=== PATIENT | male | born 1975 | race Two or more races ===

== ENCOUNTER 2018-03-25 19:55 | Emergency (ER) | payer SELFPAY ==
[~2018-03-25] VITALS: Ht 157.5 cm; Wt 79.2 kg
[~2018-03-25 19:55] MED LIST: METH10OR3 PO
[2018-03-25 21:00] LABS: ALANINE AMINOTRANSFERASE 23 U/L (12-78); ALBUMIN 4.6 g/dL (3.4-5.0); ANION GAP 6 mmol/L (5-15); CALCIUM 8.9 mg/dL (8.5-10.1); CHLORIDE 106 mmol/L (98-107); CREATININE 0.82 mg/dL (0.7-1.3)
[2018-03-25 21:03] LABS: BASOPHILS # (AUTO) 0.06 x10^3/uL (0-0.1); BASOPHILS % (AUTO) 1 % (0-1); EOSINOPHILS # (AUTO) 0.11 x10^3/uL (0-0.4); EOSINOPHILS % (AUTO) 1 % (1-7); LYMPHOCYTES # (AUTO) 2.28 x10^3/uL (1-3.4); LYMPHOCYTES % (AUTO) 21 % (22-44); MD NO; MEAN CORPUSCULAR HEMOGLOBIN 30.2 pg (27.5-34.5); MEAN CORPUSCULAR VOLUME 88.8 fL (81-97); MEAN PLATELET VOLUME 8.8 fL (7.4-10.4); MONOCYTES # (AUTO) 0.64 x10^3/uL (0.2-0.8); MONOCYTES % (AUTO) 6 % (2-9); NEUTROPHILS # (AUTO) 7.66 x10^3/uL (1.8-6.8); NEUTROPHILS % (AUTO) 71 % (42-75); PLATELET COUNT 291 x10^3/uL (130-400); RED BLOOD COUNT 5.37 x10^6/uL (4.38-5.82)
[2018-03-25 21:05] LABS: ALKALINE PHOSPHATASE 110 U/L (45-117); BILIRUBIN,TOTAL 0.3 mg/dL (0.2-1.0); TOTAL PROTEIN 8.2 g/dL (6.4-8.2); TROPONIN I < 0.015 ng/mL (0.000-0.045)
--- NOTE | 2018-03-25 21:19 | NUR ---
pt called to room from lobby, asked emt to place on monitors.
--- NOTE | 2018-03-25 21:25 | NUR ---
ASSUMED CARE OF PATIENT. PATIENT REPORTS AT 1845 HE HAD LEFT SIDED CHEST PAIN THAT LASTED UNTIL 1999. THE PAIN HAS NOW RESOLVED. NO ACUTE DISTRESS NOTED. VS STABLE. FURNACE COMBUSTION ANALYST ON. FRIEND AT BEDSIDE. WILL CONTINUE TO MONITOR.
--- NOTE | 2018-03-25 21:54 | NUR ---
PT RESTING IN ROOM. MANAGER DELI ON NO ACUTE DISTRESS NOTED. WILL CONTINUE TO MOINTOR.
--- NOTE | 2018-03-25 22:17 | NUR ---
PT AMBULATED TO BATHROOM. UA CUP GIVEN
[2018-03-25 22:37] LABS: CULTURE INDICATED? YES; MICROSCOPIC NOT IND
--- NOTE | 2018-03-25 23:02 | NUR ---
DR ALANIS IN ROOM
[2018-03-25 23:29] VITALS: BP 119/75
--- NOTE | 2018-03-25 23:29 | NUR ---
PT SIGNED AMA
== END 2018-03-25 23:32 | disposition other institution (70) ==
LOC: ED 23:05
DX: R07.89 Other chest pain (principal); F17.210 Nicotine dependence, cigarettes, uncomplicated
CPT/HCPCS: 36415; 71046; 80053; 81003; 84484; 85025; 93005; 99284

== ENCOUNTER 2018-03-26 09:41 | Emergency (ER) | payer SELFPAY ==
[~2018-03-26] VITALS: Ht 157.5 cm; Wt 79.5 kg
--- NOTE | 2018-03-26 10:17 | NUR ---
First contact with pt. MINI. Pt states, "I was here yesterday because I was having shortness of breath and tightness of chest, and anxiety. Dr. Rene said I should be admitted and stay over night for some more test but I refused. I started having some shortness of breath earlier this morning."
--- NOTE | 2018-03-26 10:21 | NUR ---
Pt states, "This morning around 8 I started having an episode like last night again." Pt connected to all monitors. All safety measures in place. Pt is AOx4, ambulates with steady gait and balance from triage to room, and skin is pink, warm, and dry.
[2018-03-26 11:58] VITALS: BP 112/86
== END 2018-03-26 12:00 | disposition home or self-care (01) ==
LOC: ED 11:10
DX: F41.1 Generalized anxiety disorder (principal); R06.09 Other forms of dyspnea; R06.4 Hyperventilation
CPT/HCPCS: 93005; 99283

== ENCOUNTER 2019-09-03 14:22 | Emergency (ER) | payer SELFPAY ==
[~2019-09-03] VITALS: Ht 157.5 cm; Wt 79.7 kg
[~2019-09-03 14:22] MED LIST changes: +METH10OR12 PO; -METH10OR3 PO
--- NOTE | 2019-09-03 16:21 | NUR ---
GETTER OPERATOR: PT AMBULATORY TO ROOM FROM LOBBY
[2019-09-03 17:02] LABS: BASOPHILS # (AUTO) 0.05 x10^3/uL (0-0.1); BASOPHILS % (AUTO) 1 % (0-1); EOSINOPHILS # (AUTO) 0.01 x10^3/uL (0-0.4); EOSINOPHILS % (AUTO) 0 % (1-7); LYMPHOCYTES % (AUTO) 11 % (22-44); MD NO; MEAN CORPUSCULAR HEMOGLOBIN 28.6 pg (27.5-34.5); MEAN CORPUSCULAR HGB CONC 33.4 g/dL (33.2-36.2); MEAN CORPUSCULAR VOLUME 85.6 fL (81-97); MEAN PLATELET VOLUME 8.9 fL (7.4-10.4); MONOCYTES # (AUTO) 0.69 x10^3/uL (0.2-0.8); MONOCYTES % (AUTO) 7 % (2-9); NEUTROPHILS # (AUTO) 8.79 x10^3/uL (1.8-6.8); NEUTROPHILS % (AUTO) 82 % (42-75); PLATELET COUNT 283 x10^3/uL (130-400); RED BLOOD COUNT 5.84 x10^6/uL (4.38-5.82); RED CELL DISTRIBUTION WIDTH 15.2 % (9.4-14.8)
--- NOTE | 2019-09-03 17:02 | NUR ---
Pt [facility] No needs expressed at this time.
[2019-09-03] MEDS ORDERED: ONDANSETRON 2MG/ML, 2ML ONE ×3 (17:04→20:21)
[2019-09-03 17:08] LABS: ALANINE AMINOTRANSFERASE 38 U/L (12-78); ALBUMIN 4.2 g/dL (3.4-5.0); ANION GAP 7 mmol/L (5-15); CHLORIDE 106 mmol/L (98-107); CREATININE 0.83 mg/dL (0.7-1.3)
[2019-09-03 17:13] LABS: ALKALINE PHOSPHATASE 121 U/L (45-117); BILIRUBIN,TOTAL 0.6 mg/dL (0.2-1.0); TOTAL PROTEIN 8.5 g/dL (6.4-8.2); TROPONIN I < 0.015 ng/mL (0.000-0.045)
--- NOTE | 2019-09-03 17:25 | NUR ---
Pt back to room from imaging. PIV established, PIV fluids and medication provided per EMAR. No other needs expressed. NADN.
[2019-09-03] MEDS ORDERED: ONDANSETRON 2MG/ML, 2ML IVPush ONE ×3 (17:30→18:30)
[2019-09-03] MEDS ORDERED: SODIUM CHLORIDE FLUSH 10ML SYR IVF ONE (17:30)
[2019-09-03] MEDS ORDERED: SODIUM CHLORIDE 0.9% 1,000ML IVBOLUS ONE (17:30)
--- NOTE | 2019-09-03 17:50 | NUR ---
TASK RN: PT SITTING UP ON GURNEL, ACTIVELY VOMITING. "THE MEDICINE SHE GAVE ME FOR VOMITING ISNT HELPING" TO BE DISCUSSED WITH MD. PT SR PER MONITOR. PT ASKING FOR BLANKET. NO OTHER NEEDS EXPRESSED AT THIS TIME.
--- NOTE | 2019-09-03 18:13 | NUR ---
Provided medications per EMAR. Pt appreciative. NADN. No other needs expressed at this time.
--- NOTE | 2019-09-03 19:02 | NUR ---
RECEIVED BEDSIDE REPORT FROM DENYS ESTES. PT IS LAYING IN BED, VSS, OCCASIONAL MOANING, STATES NAUSEA IS SOMEWHAT RESOLVED. GIRLFRIEND AT BEDSIDE.
--- NOTE | 2019-09-03 19:13 | NUR ---
Provided bedside report to DENYS Garza. All questions answered. No needs expressed at this time.
[2019-09-03] MEDS ORDERED: PROMETHAZINE 25 MG/ML, 1ML ONE (19:21)
[2019-09-03] MEDS ORDERED: MORPHINE SULFATE 4 MG/ML, 1ML ONE (19:24)
--- NOTE | 2019-09-03 19:28 | NUR ---
ERP BACK TO BEDSIDE, PT MEDICATED PER MAY. VOMIT BAG IN HAND. AWAITING CT.
[2019-09-03] MEDS ORDERED: PROMETHAZINE 25 MG/ML, 1ML IM ONE (20:00)
[2019-09-03] MEDS ORDERED: MORPHINE SULFATE 4 MG/ML, 1ML IVPush PRN (20:00)
--- NOTE | 2019-09-03 20:11 | NUR ---
PT TO IMAGING.
[2019-09-03] MEDS ORDERED: OMNIPAQUE 350 MG/ML, 100ML BOTTLE ONE (20:19)
--- NOTE | 2019-09-03 20:24 | NUR ---
PT VOMITTED DURING CT, STATES HE LIKES IT'S BECAUSE THEY LAID HIM DOWN. PT STATES HE FEELS BETTER NOW, "VERY MINIMAL NAUSEA" CURRENTLY. PT'S FACE HAS RELAXED, NO GROANING.
[2019-09-03 21:09] VITALS: BP 141/73
== END 2019-09-03 21:34 | disposition home or self-care (01) ==
LOC: ED 19:07
DX: R10.84 Generalized abdominal pain (principal); R11.2 Nausea with vomiting, unspecified; I21.9 Acute myocardial infarction, unspecified; R94.31 Abnormal electrocardiogram [ECG] [EKG]; R42 Dizziness and giddiness; F17.200 Nicotine dependence, unspecified, uncomplicated; Z90.5 Acquired absence of kidney
CPT/HCPCS: 36415; 74022; 74177; 80053; 83690; 84484; 85025; 93005; 96361; 96372; 96374; 96375; 96376; 99285; J2270; J2405; J2550; J7030; Q9967